=== PATIENT | female | born 1960 | race American Indian/Alaskan Native ===

== ENCOUNTER 2017-02-07 16:12 | Emergency (ER) | payer OTHER ==
[2017-02-07 16:21] VITALS: BMI 26.1
[2017-02-07 16:26] VITALS: RESP 18; TEMP 98.2
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
[2017-02-07 18:29] VITALS: BP 146/78; PULSE 72
[2017-02-07 22:13] VITALS: O2SAT 97
== END 2017-02-07 18:30 | disposition home or self-care (01) ==
LOC: C.ER 16:12
DX: S16.1XXA Strain of muscle, fascia and tendon at neck level, initial encounter (principal); V49.40XA Driver injured in collision with unspecified motor vehicles in traffic accident, initial encounter